=== PATIENT | female | born 1985 | race Caucasian/White ===

== ENCOUNTER 2018-12-09 21:15 | Inpatient (IN) | payer MEDICAID ==
[~2018-12-09] VITALS: Ht 160 cm; Wt 81.6 kg
[~2018-12-09 21:15] MED LIST: CEFTIN250 MG PO; COMPAZINE10 MG PO; COMPAZINE5 MG PO; FERROUS SULFAT325 MG PO; IBUPROFEN600 MG PO; K-DUR20 MEQ PO; PERCOCET 5-3251 TAB PO; PHENERGAN25 M1 PO; ZOFRAN4 MG PO
[2018-12-09 22:22] LABS: HEMATOCRIT 31.8 % (36.0-48.0); HEMOGLOBIN 11.3 g/dL (12-16); MCH 31.5 pg (26.0-34.0); MCHC 35.5 g/dL (31.0-37.0); MCV 88.6 fL (80.0-100.0); MEAN PLATELET VOLUME 10.1 fL (7.4-10.4); RBC 3.59 10x6/uL (4.00-5.40); RDW 13.8 % (11.5-14.5); WBC 9.7 10x3/uL (4.8-10.8)
[2018-12-09 22:35] VITALS: BP 101/58; Ht 160 cm; Wt 81.6 kg
[2018-12-09 23:08] LABS: APPEARANCE HAZY (CLEAR); BACTERIA FEW /hpf (NONE SEEN); BILIRUBIN NEGATIVE (NEGATIVE); COLOR YELLOW (YELLOW); GLUCOSE NEGATIVE (NEGATIVE); KETONE NEGATIVE (NEGATIVE); NITRITE NEGATIVE (NEGATIVE); PROTEIN NEGATIVE (NEGATIVE); RED CELLS - URINE 0-5 /hpf (0-5); UROBILINOGEN NORMAL (NORMAL)
[2018-12-10] VITALS (13 sets, daily range): BP systolic 103–128; BP diastolic 51–78
--- NOTE | 2018-12-10 09:42 | OP ---
PATIENT NAME: DARIN AMANDA MEDICAL RECORD: [id number] :86 LOCATION:[facility].1274 ADMISSION DATE:12/09/18 SURGEON: SHAHZAD BURGER MD DATE OF OPERATION: 12/09/2018 PREOPERATIVE DIAGNOSES: 1. at 39 weeks' gestation. 2. Non-reassuring tracing. POSTOPERATIVE DIAGNOSES: 1. Mother delivered at 39 weeks. 2. Non-reassuring tracing. PROCEDURE: Primary low transverse section. SURGEON: Shahzad Burger MD LIFT TEAM TECHNICIAN: Marvel Phillips. ANESTHESIA: Spinal. FINDINGS: Viable female , vertex presentation, Apgars were 8 and 9. Weight 7 pounds 13 ounces. Unremarkable uterus, tubes, and ovaries bilaterally. Specimen removed placenta. SPECIMEN DISPOSITION: Discarded. ESTIMATED BLOOD LOSS: Less than or equal to 700 cc. FLUIDS: 800 cc of lactated Ringer's. URINE OUTPUT: 350 mL of clear urine. COMPLICATIONS: None. DRAINS: Macario to gravity. INDICATION: The patient is a 33-year-old multiparous female who was admitted for induction of labor. The patient received a single dose of Cytotec and begins to have regular uterine contractions. With regular contractions, they are consistent with late decelerations with diminished beat to beat variability. The patient was given terbutaline and given resuscitative measures. The patient was then consented for a primary low transverse section due to non-reassuring tracing. DESCRIPTION OF PROCEDURE: After informed consent was assured, the patient was taken to the operating room where anesthetic is obtained and assessed and found to be adequate after prepping and draping. An incision was made in the lower abdomen, carried down to the underlying layer of the fascia. A Pfannenstiel skin incision was completed and a DeLee all-purpose retractor inserted. Bladder flap was developed and then the retractors now placed in the space. Low transverse hysterotomy was now performed. was delivered on to the abdomen atraumatically with the above findings. Cord blood samples were obtained and cord gases obtained. The placenta was now removed via Crede maneuver and the uterus was exteriorized and cleared of all clot and debris. OPERATIVE REPORT [id number] DARIN AMANDA The hysterotomy was closed with a running locked stitch of chromic. A single [id number] stitch is placed on the right corner for hemostasis. Posterior cul-de-sac was irrigated and irrigant removed. The uterus has now returned to the abdomen and hysterotomy inspected and found to be hemostatic. The peritoneum and muscle bellies are loosely reapproximated in the midline with an interrupted chromic stitch. The fascia was closed with a running stitch of looped PDS. Subcutaneous tissues were irrigated, bleeding vessels cauterized, and the skin was reapproximated with the 3-0 Monocryl on a Jose needle. Dermabond was applied. Sponge, lap, and needle correct times 2. TRANSINT:[id number] Voice Confirmation ID: [id number] DOCUMENT ID: [id number] SHAHZAD BURGER MD at 0942 CC: [id number] DICTATION DATE: 12/10/18238 [facility] ETL DEVELOPER: 12/10/18 0420 ADM IN [facility] [address] [id number]
[2018-12-11 04:05] VITALS: BP 103/55
[2018-12-11 06:43] LABS: BASOPHILS 0.1 % (0-2); EOSINOPHILS 0.5 % (0-7); HEMATOCRIT 30.1 % (36.0-48.0); HEMOGLOBIN 10.5 g/dL (12-16); IMMATURE GRANULOCYTES 0.4 % (0-5); LYMPHOCYTES 13.7 % (15-50); MCH 31.3 pg (26.0-34.0); MCHC 34.9 g/dL (31.0-37.0); MCV 89.6 fL (80.0-100.0); MEAN PLATELET VOLUME 10.1 fL (7.4-10.4); MONOCYTES 8.6 % (2-11); NEUTROPHILS 76.7 % (40-80); RBC 3.36 10x6/uL (4.00-5.40); RDW 14.5 % (11.5-14.5); WBC 7.5 10x3/uL (4.8-10.8)
[2018-12-11 06:46] LABS: PLATELET COUNT 180 10x3/uL (130-400)
[2018-12-11 08:41] VITALS: BP 111/61
[2018-12-11 13:05] VITALS: BP 106/56
[2018-12-11 17:27] VITALS: BP 106/59
[2018-12-11 21:05] VITALS: BP 110/58
[2018-12-11 23:49] VITALS: BP 113/61
[2018-12-12 05:38] VITALS: BP 106/53
[2018-12-12] MEDS ORDERED: PERCOCET 7.5/321 TAB PO (07:59)
[2018-12-12] MEDS ORDERED: IBUPROFEN800 MG PO (08:02)
[2018-12-12 08:41] VITALS: BP 107/56
[2018-12-12 12:43] VITALS: BP 105/56
== END 2018-12-12 14:55 | disposition home or self-care (01) | DRG 788 ==
LOC: D.LD 21:15
PROVIDERS: ADMIT Obstetrics & Gynecology; ATTEND Obstetrics & Gynecology
PROC: 10D00Z1 Extraction of Products of Conception, Low, Open Approach (ICD-10-PCS; principal; 2018-12-09)
PROC: 3E033VJ Introduction of Other Hormone into Peripheral Vein, Percutaneous Approach (ICD-10-PCS; 2018-12-09)
DX: O76 Abnormality in fetal heart rate and rhythm complicating labor and delivery (principal); Z3A.39 39 weeks gestation of pregnancy; Z37.0 Single live birth

== ENCOUNTER 2020-09-26 05:40 | Day surgery (SDC) | payer OTHER ==
[2020-09-23 10:54] LABS: BASOPHILS 0.7 % (0-2); EOSINOPHILS 3.5 % (0-7); HEMATOCRIT 37.7 % (36.0-48.0); HEMOGLOBIN 13.2 g/dL (12-16); LYMPHOCYTES 38.5 % (15-50); MCH 31.3 pg (26.0-34.0); MCV 89.3 fL (80.0-100.0); MEAN PLATELET VOLUME 9.3 fL (7.4-10.4); MONOCYTES 6.6 % (2-11); NEUTROPHIL ABS# 2.77 10x3/uL (1.56-6.13); NEUTROPHILS 50.7 % (40-80); RBC 4.22 10x6/uL (4.00-5.40); WBC 5.5 10x3/uL (4.8-10.8)
[2020-09-23 10:55] LABS: PLATELET COUNT 223 10x3/uL (130-400)
[2020-09-23 11:21] LABS: UDS - AMPHET NEGATIVE QUAL (NEGATIVE); UDS - BARB NEGATIVE QUAL (NEGATIVE); UDS - BENZO NEGATIVE QUAL (NEGATIVE); UDS - COCAINE NEGATIVE QUAL (NEGATIVE); UDS - OPIATE NEGATIVE QUAL (NEGATIVE); UDS - PCP NEGATIVE QUAL (NEGATIVE); UDS - THC POSITIVE QUAL (NEGATIVE)
[~2020-09-26] VITALS: Ht 160 cm; Wt 67.1 kg
--- NOTE | ~2020-09-26 | OP ---
PATIENT NAME: DARIN AMANDA MEDICAL RECORD: [id number] :86 LOCATION:D.OPS ADMISSION DATE: SURGEON: BUDDY BURGER MD DATE OF OPERATION: 09/26/2020 PREOPERATIVE DIAGNOSES: 1. Pelvic pain. 2. Dysfunctional uterine bleeding. 3. Undesired fertility. POSTOPERATIVE DIAGNOSES: 1. Pelvic pain. 2. Dysfunctional uterine bleeding. 3. Undesired fertility. 4. Suspect adenomyosis. 5. Endometriosis. SURGEON: Buddy Burger MD CORONARY CLINICAL SPECIALIST: Romel Ba. ANESTHESIOLOGIST: Dr. Babb. ANESTHETIC: General. FINDINGS: Active endometrial implants noted on the posterior aspect of the uterus in the lower right side. There is a slightly enlarged and boggy uterus that is retroverted. Both tubes are unremarkable as well as what was visualized of the abdominal anatomy. The vaginal vault is unremarkable. There is a first-degree descent of the uterus. The endometrium is noted to be lush without evidence of mass. PATHOLOGY: 1. Bilateral tubes. 2. Endometrial curettings. ESTIMATED BLOOD LOSS: Minimal. FLUIDS: 800 mL lactated Ringer's. URINE OUTPUT: Quantity sufficient void prior to this procedure. COMPLICATIONS: None. DRAINS: None. INDICATIONS: The patient is a 34-year-old multiparous female with undesired fertility. The patient has also been having pelvic pain and dyspareunia. The patient has had irregular periods. Medical management has failed to control the symptoms and the patient desires permanent sterilization and a D&C to address. DESCRIPTION OF PROCEDURE: After informed consent was assured, the patient was taken to the operating room where anesthetic was obtained. The patient was placed in the [facility] and prepped and draped. An incision was made at the umbilicus to accommodate a 5-mm trocar, which was inserted. OPERATIVE REPORT [id number] DARIN AMANDA Pneumoperitoneum was developed. With the patient now in Trendelenburg position, accessory ports were placed in the midline and right lower quadrant. Through the midline 8-mm port, a grasper was inserted and the right tube elevated. Using a Thunderbeat coagulation cutter coming in from the right side, the mesosalpinx was compressed, coagulated, and . This dissection was carried out underneath the right tube and across the right cornual region. This was repeated on the left side. With the left tube elevated and using the Thunderbeat start medially this time, the tube was removed from its attachments and removed from the pelvis. The uterus was now deflected anteriorly with the above findings. Ovarian fossa was noted to be free of disease. The endometrial implant identified on the posterior aspect of the uterus was now fulgurated. Once this was completed, Marcaine was placed directly over the operative sites. Adequate hemostasis has been achieved. All accessory ports were removed under direct visualization and then the primary port removed. All skin sites closed with a subcuticular stitch and Dermabond placed. The legs were positioned for the vaginal portion of this case. The speculum was introduced. The cervix was grasped and dilated to accommodate an [employer] hysteroscopy system. The hysteroscope was introduced under direct visualization with the above findings. After adequate hysteroscopy has been performed, the endometrial lining was dissected under direct visualization using the provided morcellator. After mechanical curettage was performed, the distention media was released and the patient has single tooth tenaculum removed. Adequate hemostasis was noted. The patient was taken down from the stirru and went to the recovery area in stable condition. TRANSINT:[id number] Voice Confirmation ID: [id number] DOCUMENT ID: [id number] BUDDY BURGER MD CC: [id number] DICTATION DATE: 09/26/20801 FOUNDRY WORKER APPRENTICE: 09/26/20 08 REG [facility] [address] [place] [address]
[~2020-09-26 05:40] MED LIST changes: +IBUPROFEN800 MG PO; +PERCOCET 7.5/321 TAB PO; +VENTOLIN HFA [SP8 GM
[2020-09-26 06:32] VITALS: BP 97/44; Ht 160 cm; Wt 67.1 kg
[2020-09-26 06:41] LABS: HCG URINE NEGATIVE (NEGATIVE)
--- NOTE | 2020-09-26 08:16 | NUR ---
OPA IN AIRWAY ON ADMIT
--- NOTE | 2020-09-26 10:25 | NUR ---
1013 IV DC'D. CATHETER TIP INTACT. NO BLEEDING AT SITE. BANDAID APPLIED. 1025 DISCHARGE INSTRUCTIONS REVIEWED WITH PT AND HER AUNT. BOTH VOICE UNDERSTANDING OF THESE INSTRUCTIONS. PT HAS SMALL AMOUNT OF VAGINAL BLEEDING NOTED. PT INSTRUCTED THAT IF SHE IS SOAKING A SANITATION PAD TO NOTIFIY DR BURGER.
--- NOTE | 2020-09-26 10:44 | NUR ---
1045 PT HAS MET DISCHARGE CRITERIA AT 1009. PT'S INHALATION THERAPY AIDE WAS NOTIFIED BY THE PT'S AUNT TO COME TO THE HOSPITAL. STILL WAITING ON INHALATION THERAPY AIDE TO ARRIVE.
== END 2020-09-26 11:50 | disposition home or self-care (01) ==
LOC: D.OPS 05:40
PROVIDERS: ATTEND Obstetrics & Gynecology
DX: R10.2 Pelvic and perineal pain (principal); N93.8 Other specified abnormal uterine and vaginal bleeding; Z30.2 Encounter for sterilization